=== PATIENT | male | born 1960 | race Caucasian/White ===

== ENCOUNTER 2018-01-21 15:06 | Inpatient (IN) | payer BC ==
[~2018-01-21] VITALS: Ht 185.4 cm; Wt 94.3 kg
[2018-01-21] MEDS ORDERED: aspirin 81mg tab.chew PO ONE (15:15)
[2018-01-21 15:45] LABS: BASOPHILS # (AUTO) 0.2 X10'3 (0-0.2); EOSINOPHILS # (AUTO) 0.1 X10'3 (0-0.9); EOSINOPHILS % (AUTO) 1.5 % (0-6); HEMATOCRIT 49.5 % (42.0-52.0); HEMOGLOBIN 16.9 g/dl (14.0-17.9); LYMPHOCYTES # (AUTO) 1.9 X10'3 (1.1-4.8); LYMPHOCYTES % (AUTO) 23.7 % (21-51); MEAN CORPUSCULAR HEMOGLOBIN 32.9 PG (27.0-31.0); MEAN CORPUSCULAR VOLUME 96.6 FL (78-98); MEAN PLATELET VOLUME 8.3 FL (7.4-10.4); MONOCYTES # (AUTO) 0.6 X10'3 (0-0.9); MONOCYTES % (AUTO) 7.6 % (2-12); NEUTROPHILS # (AUTO) 5.1 X10'3 (1.8-7.7); NEUTROPHILS % (AUTO) 64.2 % (42-75); PLATELET COUNT 287 X10'3 (140-440); RED BLOOD COUNT 5.13 X10'6 (4.70-6.10); RED CELL DISTRIBUTION WIDTH 12.4 % (11.5-14.5); WHITE BLOOD COUNT 7.9 X10'3 (4.5-11.0)
[2018-01-21 16:12] LABS: ALANINE AMINOTRANSFERASE 29 U/L (12-78); ALBUMIN 4.4 G/DL (3.4-5.0); ALBUMIN/GLOBULIN RATIO 1.5 (1.1-1.5); ALKALINE PHOSPHATASE 67 IU/L (46-116); ANION GAP 9 (8-16); ASPARTATE AMINO TRANSFERASE 14 U/L (10-37); BILIRUBIN,TOTAL 0.6 MG/DL (0.1-1.0); BLOOD UREA NITROGEN 16 MG/DL (7-18); BUN/CREATININE RATIO 14.5 (5.4-32.0); CALCIUM 9.3 MG/DL (8.5-10.1); CHLORIDE 105 MMOL/L (99-107); GLUCOSE 104 MG/DL (70-104); PARTIAL THROMBOPLASTIN TIME 27 SECONDS (22-32); POTASSIUM 3.9 MMOL/L (3.5-5.1); SODIUM 141 MMOL/L (135-145); TOTAL CARBON DIOXIDE 27.2 MMOL/L (24-32); TOTAL PROTEIN 7.4 G/DL (6.4-8.2); eGFR 69 ML/MIN
[2018-01-21 16:21] LABS: MAGNESIUM 1.8 MG/DL (1.5-2.4)
[2018-01-21] MEDS ORDERED: TADA20TA PO (17:00)
[2018-01-21] MEDS ORDERED: enoxaparin 100mg/ml syringe SUBCUT ONE (17:15)
[2018-01-21] MEDS ORDERED: CAFFEINE CITRATE 60 MG/3 ML injection vial IV PRN (17:55)
[2018-01-21] MEDS ORDERED: metoprolol tartrate 1mg/ml inj IV PRN (17:55)
[2018-01-21] MEDS ORDERED: acetaminophen 325mg tablet PO PRN ×2 (17:55)
[2018-01-21] MEDS ORDERED: magnesium hydroxide 30ml (MOM) UD suspension PO PRN (17:55)
[2018-01-21] MEDS ORDERED: potassium Cl 40MEQ/NS 500ml 500 ML IV PRN ×2 (17:55)
[2018-01-21] MEDS ORDERED: mag hydrox/Alum hydrox/simeth 30ml oral suspension PO PRN (17:55)
[2018-01-21] MEDS ORDERED: magnesium 1gm/100ml D5W IVPB 100 ML IV PRN (17:55)
[2018-01-21] MEDS ORDERED: magnesium 4gm in 100ml NS 100 ML IV PRN (17:55)
[2018-01-21] MEDS ORDERED: ipratropium/albuterol 3ml nebule NEB PRN (17:55)
[2018-01-21] MEDS ORDERED: potassium Cl 20 mEq SR tablet PO PRN ×2 (17:55)
[2018-01-21] MEDS ORDERED: ondansetron/PF 4mg/2ml inj IV PRN (17:55)
[2018-01-21] MEDS: normal saline 1000ml 1,000 ML IV SCH (18:20)
[2018-01-21] MEDS: nicotine 14mg patch - 24hr TD SCH (18:21)
[2018-01-21 19:30] VITALS: BP 131/80
[2018-01-21] MEDS: famotidine 20mg tablet PO SCH (20:00)
[2018-01-21 23:00] VITALS: BP 139/88
[2018-01-22] VITALS (13 sets, daily range): BP systolic 122–171; BP diastolic 73–98
[2018-01-22] MEDS: normal saline 1000ml 1,000 ML IV SCH ×3 (03:47→23:53)
[2018-01-22 04:10] LABS: ALANINE AMINOTRANSFERASE 25 U/L (12-78); ALBUMIN 3.4 G/DL (3.4-5.0); ALBUMIN/GLOBULIN RATIO 1.3 (1.1-1.5); ALKALINE PHOSPHATASE 52 IU/L (46-116); ANION GAP 9 (8-16); ASPARTATE AMINO TRANSFERASE 12 U/L (10-37); BILIRUBIN,TOTAL 0.7 MG/DL (0.1-1.0); BLOOD UREA NITROGEN 18 MG/DL (7-18); BUN/CREATININE RATIO 20.9 (5.4-32.0); CALCIUM 8.4 MG/DL (8.5-10.1); CHLORIDE 109 MMOL/L (99-107); CREATININE 0.86 MG/DL (0.60-1.10); GLUCOSE 94 MG/DL (70-104); POTASSIUM 3.5 MMOL/L (3.5-5.1); SODIUM 143 MMOL/L (135-145); TOTAL CARBON DIOXIDE 25.5 MMOL/L (24-32); eGFR > 90 ML/MIN
[2018-01-22 04:14] LABS: CHOL/HDL RATIO 4.8 (0.00-4.99); CHOLESTEROL 184 MG/DL (0-200); HDL CHOLESTEROL 38 MG/DL (35-60); LDL CHOLESTEROL 125 MG/DL (50-100); MAGNESIUM 1.7 MG/DL (1.5-2.4); TRIGLYCERIDES 138 MG/DL (20-135)
[2018-01-22 04:15] LABS: BASOPHILS # (AUTO) 0.1 X10'3 (0-0.2); BASOPHILS % (AUTO) 0.7 % (0-1); EOSINOPHILS # (AUTO) 0.2 X10'3 (0-0.9); EOSINOPHILS % (AUTO) 2.6 % (0-6); HEMATOCRIT 44.1 % (42.0-52.0); HEMOGLOBIN 14.9 g/dl (14.0-17.9); LYMPHOCYTES # (AUTO) 3.2 X10'3 (1.1-4.8); LYMPHOCYTES % (AUTO) 39.7 % (21-51); MEAN CORPUSCULAR HEMOGLOBIN 32.6 PG (27.0-31.0); MEAN CORPUSCULAR HGB CONC 33.7 % (33.0-36.5); MEAN CORPUSCULAR VOLUME 96.9 FL (78-98); MEAN PLATELET VOLUME 8.1 FL (7.4-10.4); MONOCYTES # (AUTO) 0.6 X10'3 (0-0.9); MONOCYTES % (AUTO) 7.7 % (2-12); NEUTROPHILS % (AUTO) 49.3 % (42-75); PLATELET COUNT 260 X10'3 (140-440); RED BLOOD COUNT 4.55 X10'6 (4.70-6.10); RED CELL DISTRIBUTION WIDTH 12.2 % (11.5-14.5); WHITE BLOOD COUNT 8.1 X10'3 (4.5-11.0)
[2018-01-22] MEDS: famotidine 20mg tablet PO SCH ×2 (07:21→20:41)
[2018-01-22] MEDS: enoxaparin 40mg/0.4ml syringe SQ SCH (07:22)
[2018-01-22] MEDS: nicotine 14mg patch - 24hr TD SCH (07:23)
[2018-01-22] MEDS: K and/or MAG REPLACEMENT MC SCH (08:00)
[2018-01-22] MEDS ORDERED: CAFFEINE CITRATE 60 MG/3 ML injection vial IV ONE (08:24)
[2018-01-22] MEDS ORDERED: regadenoson 0.4mg/5ml syringe IV ONE (08:24)
[2018-01-22] MEDS: regadenoson 0.4mg/5ml syringe IV PRN ×2 (08:25→08:59)
[2018-01-22] MEDS: atorvastatin 20mg tablet PO SCH (10:41)
[2018-01-23] VITALS (13 sets, daily range): BP systolic 115–147; BP diastolic 71–84
[2018-01-23 05:48] LABS: ALANINE AMINOTRANSFERASE 23 U/L (12-78); ALBUMIN 3.3 G/DL (3.4-5.0); ALBUMIN/GLOBULIN RATIO 1.4 (1.1-1.5); ALKALINE PHOSPHATASE 48 IU/L (46-116); ANION GAP 10 (8-16); ASPARTATE AMINO TRANSFERASE 11 U/L (10-37); BILIRUBIN,TOTAL 0.9 MG/DL (0.1-1.0); BLOOD UREA NITROGEN 14 MG/DL (7-18); BUN/CREATININE RATIO 14.7 (5.4-32.0); CALCIUM 8.4 MG/DL (8.5-10.1); CHLORIDE 109 MMOL/L (99-107); CREATININE 0.95 MG/DL (0.60-1.10); GLUCOSE 93 MG/DL (70-104); MAGNESIUM 1.8 MG/DL (1.5-2.4); POTASSIUM 3.6 MMOL/L (3.5-5.1); SODIUM 142 MMOL/L (135-145); TOTAL CARBON DIOXIDE 23.3 MMOL/L (24-32); TOTAL PROTEIN 5.7 G/DL (6.4-8.2); eGFR 81 ML/MIN
[2018-01-23 05:51] LABS: BASOPHILS % (AUTO) 0.5 % (0-1); EOSINOPHILS # (AUTO) 0.2 X10'3 (0-0.9); EOSINOPHILS % (AUTO) 2.1 % (0-6); HEMOGLOBIN 14.3 g/dl (14.0-17.9); LYMPHOCYTES # (AUTO) 2.4 X10'3 (1.1-4.8); LYMPHOCYTES % (AUTO) 33.7 % (21-51); MEAN CORPUSCULAR HEMOGLOBIN 32.9 PG (27.0-31.0); MEAN CORPUSCULAR HGB CONC 34.1 % (33.0-36.5); MEAN CORPUSCULAR VOLUME 96.6 FL (78-98); MEAN PLATELET VOLUME 8.1 FL (7.4-10.4); MONOCYTES # (AUTO) 0.6 X10'3 (0-0.9); MONOCYTES % (AUTO) 7.8 % (2-12); NEUTROPHILS % (AUTO) 55.9 % (42-75); PLATELET COUNT 252 X10'3 (140-440); RED BLOOD COUNT 4.34 X10'6 (4.70-6.10); WHITE BLOOD COUNT 7.2 X10'3 (4.5-11.0)
[2018-01-23] MEDS: atorvastatin 20mg tablet PO SCH (07:56)
[2018-01-23] MEDS: famotidine 20mg tablet PO SCH (07:57)
[2018-01-23] MEDS: enoxaparin 40mg/0.4ml syringe SQ SCH (08:00)
[2018-01-23] MEDS: K and/or MAG REPLACEMENT MC SCH (08:00)
[2018-01-23] MEDS ORDERED: atorvastatin 20mg tablet PO SCH (09:15)
[2018-01-23] MEDS ORDERED: aspirin 81mg tab.chew PO SCH (09:15)
[2018-01-23] MEDS ORDERED: heparin 1,000unit/ml 10ml vial 10 ML ONE (09:53)
[2018-01-23] MEDS: normal saline 1000ml 1,000 ML IV SCH (09:53)
[2018-01-23] MEDS ORDERED: nitroGLYCERIN-Tridil 50MG/D5W 250 ML IV ONE (09:53)
[2018-01-23] MEDS ORDERED: LIDOcaine 1% 30ml preserv. free vial ONE (09:53)
[2018-01-23] MEDS ORDERED: verapamil 2.5 mg/ml inj IV ONE (09:53)
[2018-01-23] MEDS ORDERED: fentaNYL/PF 50MCG/1 ML 2ML syringe ONE (09:53)
[2018-01-23] MEDS ORDERED: midazolam 2 mg/2 ml injection ONE (09:53)
[2018-01-23] MEDS ORDERED: iohexol 350MG/ML 100ml bottle IV ONE (09:54)
[2018-01-23] MEDS ORDERED: OXAZEpam 15mg capsule PO PRN (12:30)
[2018-01-23] MEDS ORDERED: proCHLORperazine 10 MG/2 ml inj IV PRN (12:30)
[2018-01-23] MEDS: nicotine 14mg patch - 24hr TD SCH (15:24)
[2018-01-23] MEDS ORDERED: NICO-631 TD (18:03)
[2018-01-23] MEDS ORDERED: ASPI-1265 PO (18:03)
[2018-01-23] MEDS ORDERED: FAMO20TA8 PO (18:03)
[2018-01-23] MEDS ORDERED: ATOR20TA66 PO (18:03)
== END 2018-01-23 18:45 | disposition home or self-care (01) | DRG 287 ==
LOC: ER 15:07 → ED HOLD 17:53 → EDBEDREQ 18:50 → PCU 3S 19:15
PROVIDERS: ADMIT Family Medicine; ATTEND Emergency Medicine
PROC: 4A02XM4 Measurement of Cardiac Total Activity, External Approach (ICD-10-PCS; principal; 2018-01-22)
PROC: 3E033HZ Introduction of Radioactive Substance into Peripheral Vein, Percutaneous Approach (ICD-10-PCS; 2018-01-22)
PROC: 4A023N7 Measurement of Cardiac Sampling and Pressure, Left Heart, Percutaneous Approach (ICD-10-PCS; 2018-01-23)
PROC: B2111ZZ Fluoroscopy of Multiple Coronary Arteries using Low Osmolar Contrast (ICD-10-PCS; 2018-01-23)
PROC: B2151ZZ Fluoroscopy of Left Heart using Low Osmolar Contrast (ICD-10-PCS; 2018-01-23)
DX: R07.89 Other chest pain (principal); I20.0 Unstable angina; E78.5 Hyperlipidemia, unspecified; F17.210 Nicotine dependence, cigarettes, uncomplicated; R00.1 Bradycardia, unspecified; I10 Essential (primary) hypertension; I08.3 Combined rheumatic disorders of mitral, aortic and tricuspid valves; K21.9 Gastro-esophageal reflux disease without esophagitis; Z82.49 Family history of ischemic heart disease and other diseases of the circulatory system; Z79.899 Other long term (current) drug therapy
CPT/HCPCS: 36415; 71045; 78452; 80053; 80061; 83735; 83880; 84484; 85025; 85610; 85730; 87070; 93005; 93017; 93306; 93458; 94760; 96372; 99152; 99285; A9500; C1769; J1644; J1650; J2250; J3010; J3490; J7030; Q9967